=== PATIENT | female | born 1960 | race Caucasian/White ===

== ENCOUNTER → 2016-04-20 | Outpatient (CLI) | payer MEDICAID ==
[2016-04-20] VITALS (12 sets, daily range): BP systolic 112–1134; BP diastolic 34–90; PULSE 76–92
[~2016-04-20] VITALS: Ht 162.6 cm; Wt 68.6 kg
[~2016-04-20] MED LIST: B-121000 MCG PO; BREO IH; CALCIUM 600600 MG PO; MEDROL 4MG DOSPA4 MG PO; MULTIPLE VITAMI1 CAP PO; NORCO 325 MG-51 TAB PO; PROVENTIL0.09 MG/A1 IH; VALIUM 5MG T5 MG/TAB PO; VITAMIN C500 MG PO; VITAMIN D31000 I1 PO; VITAMIN D3400 I1 PO
== END ==
LOC: COL.RAD 11:50
DX: C22.7 Other specified carcinomas of liver (principal)
CPT/HCPCS: J2250; J3010

== ENCOUNTER → 2016-05-26 | Outpatient (CLI) | payer MEDICAID ==
[~2016-05-26] VITALS: Ht 162.6 cm; Wt 70.0 kg
[2016-05-26 13:16] VITALS: BP 117/67; PULSE 97
== END ==
LOC: COL.RAD 05-25 12:00
DX: R18.8 Other ascites (principal)